=== PATIENT | female | born 1970 | race Caucasian/White ===

== ENCOUNTER → 2021-06-25 | Outpatient (CLI) | payer OTHER | LOC: EXRD 10:39 | DX: M25.562 Pain in left knee (principal); M79.644 Pain in right finger(s) | CPT/HCPCS: 73130; 73564 ==

== ENCOUNTER → 2021-07-14 | Outpatient (CLI) | payer OTHER | LOC: MAMO 14:56 | DX: Z12.31 Encounter for screening mammogram for malignant neoplasm of breast (principal) | CPT/HCPCS: 77063; 77067 ==